=== PATIENT | male | born 1970 | race Caucasian/White ===

== ENCOUNTER 2016-09-12 12:43 | Emergency (ER) | payer OTHER ==
[~2016-09-12] VITALS: Ht 182.9 cm; Wt 102.1 kg
[~2016-09-12 12:43] MED LIST: ASPIRIN81 M4 PO; CLOPIDOGREL75 M1 PO; METOPROLOL TART25 M1 PO; MOTRIN800 MG PO; NEURONTIN300 M1 PO; OMEPRAZOLE20 M2 PO; PERCOCET 325 MG1 TA2 PO; PERCOCET 5-3251 EACH PO; PRINIVIL5 M1 PO; TAMIFLU 75MG75 MG PO; ZOFRAN 4 MG TABL4 MG PO
[2016-09-12 12:46] VITALS: BP 144/81
--- NOTE | 2016-09-12 13:46 | ED NECK/BACK PAIN COMPLAINT ---
History of Present Illness General Chief Complaint: Low Back Pain/Injury Stated Complaint: LBP Source: patient Exam Limitations: no limitations Vital Signs & Intake/Output Vital Signs & Intake/Output Vital Signs Date Time Temp Pulse Resp B/P Pulse O2 O2 Flow FiO2 Ox Delivery Rate 09/12 1246 97.1 72 18 144/81 98 Room Air Allergies Coded Allergies: No Known Allergies (09/21/15) Reconcile Medications Aspirin (Aspirin*) 81 MG TAB.CHEW 1 TAB PO DAILY HEART HEALTH (Reported) Clopidogrel Bisulfate (Clopidogrel) 75 MG TABLET 1 TAB PO DAILY BLOOD THINNER (Reported) Gabapentin (Neurontin) 300 MG CAPSULE 2 CAP PO TID UNKNOWN (Reported) Lisinopril (Prinivil) 5 MG TABLET 1 TAB PO DAILY BP (Reported) Methylprednisolone. (Medrol) 4 MG TAB.DS.PK 1 DP PO AD back pain 6 on day 1 then reduce by one tablet daily until gone Metoprolol Tartrate 25 MG TABLET 1 TAB PO BID HEART (Reported) Omeprazole 20 MG CAPSULE.DR 1 CAP PO DAILY GI (Reported) Oxycodone HCl/Acetaminophen (Percocet 5-325 MG Tablet) 5 MG-325 MG TABLET 1-2 TAB PO Q6P PRN pain Triage Note: 46 Y/O MALE C/O LOW BACK PAIN RADIATING DOWN RIGHT LEG SINCE FALL YESTERDAY ON ICE. HX HERNIATED L3-L4. DENIES URINARY SYMPTOMS OR HEMATURIA. TOOK IBUPROPHEN, 8 TABS 200MG EACH, 1.5 HOUR AGO WITH NO RELIEF. Triage Nurses Notes Reviewed? yes Onset: Abrupt Duration: day(s): (1), constant, continues in ED Timing: recent history Quality/Severity: moderate, severe Loss of Consciousness: no loss of consciousness HPI: 46-year-old male comes into the emergency room for evaluation of low back pain. Patient reports that yesterday while he was shovelinG snow he slipped outside and came down on his back. History of L4-L5 disc herniation. Patient reports has been experiencing some pain radiating down his right leg. Denies any weakness. Sharp. Worse with any type of movement. Denies any other associated symptoms. (LEIGHTON HEBERT) Past History Travel History Traveled to [place] past 21 day No Medical History Any Pertinent Medical History? see below for history Neurological: NONE EENT: NONE Cardiovascular: CAD, hypertension, hyperlipidemia, myocardial infarction Respiratory: NONE Gastrointestinal: NONE Hepatic: NONE Renal: KIDNEY STONES Musculoskeletal: NONE Psychiatric: NONE Endocrine: NONE Blood Disorders: NONE Cancer(s): NONE YOUTH WORKER/Reproductive: NONE Surgical History Surgical History: knee replacement, cardiac stent Psychosocial History Who do you live with Patient/Self Services at Home None What is your primary language Pakistani Tobacco Use: Never used Family History Hx Contributory? No (LEIGHTON HEBERT) Review of Systems Review of Systems Constitutional: Reports: no symptoms. Eyes: Reports: no symptoms. Ears, Nose, Throat, Mouth: Reports: no symptoms. Respiratory: Reports: no symptoms. Cardiovascular: Reports: no symptoms. Gastrointestinal/Abdominal: Reports: no symptoms. Musculoskeletal: Reports: see HPI. Skin: Reports: no symptoms. Neurological/Psychological: Reports: no symptoms. All Other Systems: Reviewed and Negative (LEIGHTON HEBERT) Physical Exam Physical Exam General Appearance: well developed/nourished, mild distress Head: atraumatic Eyes: Bilateral: normal appearance. Ears, Nose, Throat, Mouth: hearing grossly normal, moist mucous membrane Neck: normal inspection Respiratory: normal breath sounds, no respiratory distress Cardiovascular: regular rate/rhythm Back: normal inspection, vertebral tenderness, right paraspinal tenderness, muscle spasming, Extremities: normal range of motion Motor: Deficit L4 Right: No Deficit L4 Left: No Deficit L5 Right: No Deficit L5 Left: No Deficit S1 Right: No Deficit S1 Right: No Neurologic/Psych: awake, alert, oriented x 3, normal mood/affect Skin: intact, normal color, warm/dry (LEIGHTON HEBERT) Progress Differential Diagnosis: herniated disc, myofascial strain, pyelo/UTI, sciatica, spinal cord inj, T/L spine injury, ureterolithiasis, vertebral fx Plan of Care: Orders Procedure Date/time Status XRY-LUMBOSACRAL SPINE 4 VIEWS 09/12 1344 Active Diagnostic Imaging: Viewed by Me: Radiology Read. Discussed w/RAD: Radiology Read. Radiology Impression: SERVICE DATE: 09/12/16 EXAM TYPE: RAD - XRY- LUMBOSACRAL SPINE 4 VIEWS EXAMINATION: XR LUMBOSACRAL SPINE CLINICAL INFORMATION : Lower back pain status post fall. COMPARISON: None TECHNIQUE: AP and lateral views of the lumbosacral spine were obtained. FINDINGS: There is moderate loss of disc space height at the L3/L4 level with mild grade 1 retrolisthesis of L3 on L4 along with mild hypertrophic endplate changes. Facet joint space height appears fairly well-maintained without evidence of significant productive changes. IMPRESSION: Degenerative disc changes L3/L4 level. No fracture deformities are seen. DICTATED BY: FRAN GARCIA MD DATE/TIME DICTATED: 1431 (KARLA CABEZAS,LEIGHTON) Departure Departure Disposition: HOME OR SELF CARE Condition: Stable Clinical Impression Primary Impression: Lumbar radiculopathy, acute Referrals: WALE COLLIER MD (PCP/Family) Additional Instructions: Take Medrol Dosepak and Percocet as prescribed. Follow-up with your primary care doctor. Return if any weakness in right lower leg, urinary bowel dysfunction, or any other concerns worsening symptoms. Please go over all results of today's visit with your primary care doctor. Contact your primary care doctor to let them know you were here in the emergency room. There may be nonspecific findings which may not be related to your visit today here in the emergency room but may require further evaluation and chronic monitoring by your primary care doctor. If you had a laceration today the chance of foreign body always remains. You should follow-up with your primary care doctor for recheck in 3-5 days for a wound check. If you had an x-ray done there is a chance that a fracture could have been missed on initial read and you should follow-up with your primary care doctor for repeat x-rays if symptoms persist. If your blood pressure was elevated here in the emergency room please have rechecked by her primary care doctor within the next 48 hours by your primary care doctor. If you were prescribed a narcotic here in the emergency room or any type of controlled substances you're not allowed to drive while taking this medication or operate any type of heavy machinery. Narcotics can make you feel lightheaded dizziness nausea and can cause constipation. You may need to spanish moss picker a stool softener. Thank you for choosing [facility] emergency room. Please return to the emergency room immediately if you have any other concerns worsening of symptoms. Departure Forms: Customer Survey General Discharge Information Prescriptions: Current Visit Scripts Oxycodone HCl/Acetaminophen (Percocet 5-325 MG Tablet) 1-2 TAB PO Q6P PRN pain #20 TAB Methylprednisolone. (Medrol) 1 DP PO AD #1 DP 6 on day 1 then reduce by one tablet daily until gone Comments 09/12/2016 5:13:03 PM Patient understands and agrees with plan of care. Patient is nontoxic- appearing. In no apparent distress. Resting comfortably in room. No motor deficits on exam. No evidence of acute trauma. (KARLA CABEZAS,LEIGHTON)
--- NOTE | 2016-09-12 14:37 | RADIOLOGY REPORT ---
EXAMINATION: XR LUMBOSACRAL SPINE CLINICAL INFORMATION: Lower back pain status post fall. COMPARISON: None TECHNIQUE: AP and lateral views of the lumbosacral spine were obtained. FINDINGS: There is moderate loss of disc space height at the L3/L4 level with mild grade 1 retrolisthesis of L3 on L4 along with mild hypertrophic endplate changes. Facet joint space height appears fairly well-maintained without evidence of significant productive changes. IMPRESSION: Degenerative disc changes L3/L4 level. No fracture deformities are seen.
[2016-09-12] MEDS ORDERED: PERCOCET 5-3251 EACH PO (14:53)
[2016-09-12] MEDS ORDERED: MEDROL4 M2 PO (14:53)
== END 2016-09-12 15:10 ==
LOC: ERH 12:43
DX: M54.16 Radiculopathy, lumbar region (principal)
CPT/HCPCS: 72110